=== PATIENT | female | born 1960 | race Caucasian/White ===

== ENCOUNTER 2017-05-06 08:36 | Day surgery (SDC) | payer BC ==
--- NOTE | 2017-05-05 22:25 | HP ---
Date/Time of Note Date/Time of Note DATE: 05/05/17 TIME: 22:15 Assessment/Plan VTE Prophylaxis VTE Prophylaxis Intervention: ambulation Lines/Catheters IV [facility] Type [facility]from [facility] Peripheral IV Central line still needed: No Urinary Cath still in place: No Assessment/Plan Chief Complaint/Hosp Course A: Menorrhagia. Endometrial hyperplasia without atypia. P: Hysteroscopy with endometrial ablation. Possible curretage prior. Problems: HPI/ROS Admit Date/Time Admit Date/Time May 06, 2017 Hx of Present Illness 56 y.o. A1 postmenopausal on unopposed estrogen due to lack of tolerance of progesterone therapy. Pt has had intermittent menorrhagia. A year ago she had an EMB with endometrial hyperplasia without atypia and she had another just last week with the same diagnosis. Pt was given the option of a hysterectomy or a HSC with hydrothermal ablation and she decided on the ablation but understands that she may still need a hysterectomy. She had been anemic in the past but with iron therapy her hgb is now back to normal. ROS Constitutional: no complaints Respiratory: no complaints Cardiovascular: no complaints Gastrointestinal: no complaints Genitourinary: bleeding Musculoskeletal: no complaints Neurologic: no complaints Psychological: nl mood/affect, no complaints PMH/Family/Social Past Medical History Medical History: GERD, other (Psoriatic arthritis, osteoporosis,adrenal insufficiency, degenerative disc disease, depression.) Past Surgical History Multiple orthopedic procedures with laminectomies and fusions. Family History Significant Family History: heart disease (father had quadruple bypass), cancer (father-prostate), hypertension (mother) Social History Alcohol Use: none Smoking Status: Never smoker Drug Use: none Exam/Review of Systems Vital Signs Vitals BP 152/92 T=97.1 Exam Constitutional: alert, well developed Psych: nl mood/affect, no complaints Head: atraumatic, normocephalic Neck: non-tender, supple Respiratory: clear to auscultation, normal air movement Cardiovascular: nl pulses, regular rate and rhythm Gastrointestinal: nl liver, spleen, non-tender, soft Genitourinary - Female: nl adnexae, nl external genitalia Musculoskeletal: nl extremities to inspection, nl gait and stance 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 Leflunomide 20 mg q day. Otezla 30 mg BID. Levorphanol 4 mg 4x/day. Relistor 150 mg. Zoloft 25 mg q day. Adderall 10 mg TID. Wellbutrin 450 mg q day. Estradiol 5 mg IM q 3 weeks. Testosterone 50 mg IM q 3 weeks. Pepcid prn. GasX prn. DALY JAMES MD May 05, 2017 22:25
[~2017-05-06] VITALS: Ht 162.6 cm; Wt 59.2 kg
[2017-05-06] VITALS (8 sets, daily range): BP systolic 145–180; BP diastolic 78–92; PULSE 64–84; RESP 12–18; Ht 162.6 cm; Wt 59.2 kg
[~2017-05-06 08:36] MED LIST: LACTATED RINGER'S 1,000 ML IV SCH
[2017-05-06] MEDS ORDERED: PRED5TAB PO (09:04)
[2017-05-06] MEDS ORDERED: LEFL20TA18 PO (09:04)
[2017-05-06] MEDS ORDERED: APRE30TA2 PO (09:05)
[2017-05-06] MEDS ORDERED: LEVO2TAB3 PO (09:06)
[2017-05-06] MEDS ORDERED: METH150T PO (09:07)
[2017-05-06] MEDS ORDERED: SERT25TA PO (09:08)
[2017-05-06] MEDS ORDERED: DEXT10TA9 PO (09:09)
[2017-05-06] MEDS ORDERED: BUPR-75 PO (09:11)
[2017-05-06] MEDS ORDERED: MIDAZOLAM 1 MG/ML 2 ML INJ ONE (11:52)
[2017-05-06] MEDS ORDERED: FENTAnyl 50 MCG/ML VIAL ONE (11:52)
[2017-05-06] MEDS ORDERED: CEFAZOLIN 1 GM INJ ONE (12:46)
[2017-05-06] MEDS ORDERED: LIDOCAINE 2% (SDV) 5 ML INJ ONE (12:46)
[2017-05-06] MEDS ORDERED: PROPOFOL 20 ML ONE (12:46)
[2017-05-06] MEDS ORDERED: ONDANSETRON 4 MG INJ ONE (12:47)
--- NOTE | 2017-05-06 12:48 | PD.PPDC ---
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
--- NOTE | 2017-05-06 12:51 | OPR ---
Date/Time of Note Date/Time of Note DATE: 05/06/17 TIME: 12:49 Operative Report Procedure Date: May 06, 2017 Preoperative Diagnosis Postmenopausal bleeding. Endometrial hyperplasia without atypia. Postoperative Diagnosis Same Operation/Procedure Performed Hysteroscopy with hydrothermal ablation. 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 Anesthesia Type: general Anesthesiologist: YOGESH RANDOLPH MD Estimated Blood Loss: none Transfusion none Specimen None Grafts/Implants none Complications none Pt Condition Post Procedure: stable Disposition: PACU Procedure Description The patient was brought to the OR and placed under general anesthesia. Her legs were then brought up into stirrups and she was prepped and draped in the usual sterile fashion. A weighted speculum was placed, the cervix was grasped with a tenaculum, the os was dilated with Hegar dilators, and the uterus was sounded to 8 cm. The hysteroscope was placed and the hydrothermal ablation cycle was initiated. During the viewing period the endometrial cavity was examined and there were no lesions identified any aspect of the cavity. The heating cycle was then initiated and the endometrium was ablated x 10 minutes and then the water was cooled and the scope was removed. The speculum was then removed. the patients legs were brought back down into the full supine position and she was awakened from general anesthesia and then transported to the recovery room in excellent condition. DALY JAMES MD May 06, 2017 12:51
[2017-05-06] MEDS ORDERED: LABETALOL HCL 20MG INJ IV PRN (13:30)
[2017-05-06] MEDS ORDERED: HYDROmorphONE (0.2 MG/ML) 10ML SYG IV PRN ×2 (13:30)
[2017-05-06] MEDS ORDERED: FENTAnyl 50 MCG/ML VIAL IV PRN (13:30)
[2017-05-06] MEDS ORDERED: MEPERIDINE 25 MG INJ IV PRN (13:30)
[2017-05-06] MEDS ORDERED: hydrALAzine 20 MG INJ IV PRN (13:30)
[2017-05-06] MEDS ORDERED: METOCLOPRAMIDE 10 MG INJ IV PRN (13:30)
[2017-05-06] MEDS ORDERED: ONDANSETRON 4 MG INJ IV PRN (13:30)
[2017-05-06] MEDS ORDERED: DIPHENHYDRAMINE 50 MG INJ IV PRN (13:30)
== END 2017-05-06 15:18 | disposition home or self-care (01) ==
LOC: SDS 08:36
PROVIDERS: ATTEND Obstetrics & Gynecology
DX: N95.0 Postmenopausal bleeding (principal); K21.9 Gastro-esophageal reflux disease without esophagitis; D64.9 Anemia, unspecified
CPT/HCPCS: 58353; J0360; J0690; J2175; J2250; J2405; J3010